=== PATIENT | male | born 1965 | race Caucasian/White ===

== ENCOUNTER 2020-06-14 12:10 | Emergency (ER) | payer SELFPAY ==
--- NOTE | 2020-06-14 12:21 | PDOC ---
History of Present Illness - General Chief Complaint: Pain Stated Complaint: LEFT UPPER ARM PAIN Time Seen by Provider: 06/14/20 12:20 History Source: Patient Exam Limitations: No Limitations - History of Present Illness Initial Comments: 06/14/20 12:21 54YOM with out PMH who p/w left upper arm pain (states in the deltoid region) for the past 3.5 weeks which he noticed after awakening from a normal night's sleep 3.5 weeks ago. States he has taken occasional OTC analgesic for it but no other medications, tried ice and rest and stretching but nothing has helped. He notes it seems to be getting worse and it is exacerbated by movement of the shoulder. Denies any neck, back, chest, rib, or abdominal pain. Denies skin changes. States he thought the area might be swollen and was concerned for a blood clot because a family member mentioned that might be the cause. He denies n/t/w focally. Past History - Medical History Allergies/Adverse Reactions: Allergies Allergy/AdvReac Type Severity Reaction Status Date / Time No Known Allergies Allergy Verified 06/14/20 12:22 Home Medications: Ambulatory Orders NK [No Known Home Medication] 06/14/20 Review of Systems - Review of Systems Able to Perform ROS?: Yes Comments:: 06/14/20 12:32 GEN: no fever, chills, malaise, or generalized weakness HEENT: no ear pain, congestion, sore throat, vision change, or eye pain CV: no chest pain, palpitations, lightheadedness, syncope, or edema RESP: no SOB, wheezing, or cough GI: no abdominal pain, nausea, vomiting, diarrhea, constipation, or rectal bleed : no dysuria, hematuria, or discharge MSK: left upper arm pain, otherwise no muscle weakness or pain, no joint swelling or pain NEURO: no headache, vertigo, numbness, tingling, or focal weakness PSYCH: no SI, HI, or behavior change SKIN: no jaundice, rash, lesions, or unexplained bruises ROS otherwise negative except as noted in HPI *Physical Exam - Vital Signs Initial Vital Signs Temp Pulse Resp BP Pulse Ox 97.7 F 86 15 142/100 96 06/14/20 12:17 06/14/20 12:17 06/14/20 12:17 06/14/20 12:17 06/14/20 12:17 - Physical Exam 06/14/20 12:35 GENERAL: well-appearing, A/Ox4, no distress, answers questions appropriately, pleasant HEENT: PERRLA, EOMI, moist mucous membranes NECK/BACK: no midline ttp, no spinal step-off or deformity, no hematoma, no paraspinous ttp, full ROM, neck supple CARDIOVASCULAR: regular rate/rhythm, no MGR, strong peripheral pulses, capillary refill <2 seconds, extremities wwp, no edema LUNGS/RESPIRATORY: no respiratory distress, CTAB GI/ABDOMEN: symmetric [id number], normoactive BS, soft, no ttp, no midline pulsatile masses : no CVA tenderness MSK/EXTREMITIES: patient hesitant with left shoulder ROM especially with abduction above 90 degrees, minimal left deltoid ttp without swelling, no deformity, no joint line tenderness to left glenohumeral joint, no muscle atrophy, no acute deformity SKIN: warm and dry, no pallor, no jaundice, no rash, no pathologic-appearing bruising, no skin breakdown, no cuts, no lesions NEUROLOGICAL: GCS 15, CN II-XII grossly intact, 5/5 strength proximally and distally, no facial droop Medical Decision Making - Medical Decision Making 06/14/20 12:37 54YOM without PMH p/w focal deltoid pain without known injury, no similar prior episodes. Initial Vital Signs Temp Pulse Resp BP Pulse Ox 97.7 F 86 15 142/100 96 06/14/20 12:17 06/14/20 12:17 06/14/20 12:17 06/14/20 12:17 06/14/20 12:17 Most likely muscle strain/sprain. Possibility of bone cyst/mass and will get XR to evaluate for this. Unlikely DVT as there is no visible swelling and the patient reports no risk factors except decreased activity level since November of 2019. Less likely neurologic injury given that there is no weakness or numbness. No clinical e/o infection. Unlikely any focal myositis or rhabdomyolysis but can get CPK. Provider Orders Category Date Time Status CK INDEX Stat Lab 06/14/20 13:43 Completed CK MB Stat Lab 06/14/20 13:43 Completed CK [CPK] Stat Lab 06/14/20 13:43 Completed HUMERUS-LEFT [RAD] Stat Radiology 06/14/20 12:28 Completed DUPLEX VASCUL US-1 ARM [US] Stat Ultrasound 06/14/20 12:28 Completed Lab Results Creatine Kinase 193 U/L ([id number]) 06/14/20 13:43 Creatine Kinase Index 1.3 % (0.0-5.0) 06/14/20 13:43 CK-MB (CK-2) 2.7 ng/mL (0.5-3.6) 06/14/20 13:43 US/DUPLEX VASCUL US-1 ARM Rule out DVT Left upper extremity ultrasound. Grayscale, pulsed Doppler and color Doppler interrogation of the left upper extremity deep venous system including the subclavian and jugular vein was performed. The left jugular vein, subclavian vein, axillary and brachial vein as well as the left radius and ulnar vein were identified with a normal phasic waveform , adequate compressibility and without evidence of venous thrombosis. Left cephalic and basilic vein are patent without evidence of thrombosis IMPRESSION: There is no evidence of deep venous thrombosis in the left upper extremity including the jugular and subclavian vein. RAD/HUMERUS-LEFT Left humerus: Pain. 2 views of the left humerus reveal no sign of fracture or subluxation and no sign of blastic or lytic changes. If symptoms persist, further imaging may be of help I explain the results to the patient and have a discussion with him about them. He understands we do not know for sure what may be causing his symptoms, but we have ruled out the emergencies we believed it could be. He understands he will need to f/u with his PCP and orthopedist, and will see his PCP on Wednesday. States he lives in [place] and is too far away to come back and see our ortho team here, so will talk with his PCP for a referral if he still has pain on Wednesday. Specific return precautions are discussed. Discharge - Discharge Information Problems reviewed: Yes Clinical Impression/Diagnosis: Left arm pain Condition: Good Disposition: HOME - Admission No - Follow up/Referral Referrals: ON STAFF,NOT [Non Staff, Medical] - - Patient Discharge Instructions Additional Instructions: You were seen in the ER for left deltoid-area arm pain. We did an ultrasound to make sure there was no blood clot (there was none) and an x-ray to make sure there were no bony abnormalities. We also took a lab sample for measurement of creatine phophokinase to make sure there was no muscle breakdown (it was normal). We do not know exactly what is causing the pain, but we do not think you are having an emergency anymore at this time. Please use rest, ice, compression and elevation. You can take Tylenol and Motrin for pain as needed. Follow up with your primary doctor and discuss a referral to an orthopedist with them (we offered you a referral to one of ours, but you live far away). If you have any new or worsening symptoms, go immediately to an ER. - Post Discharge Activity
[2020-06-14 12:31] VITALS: BP 142/100; PULSE 86; TEMP 97.7; BMI 31.7
== END 2020-06-14 14:42 | disposition home or self-care (01) ==
LOC: FER 12:10
DX: M79.602 Pain in left arm (principal)
CPT/HCPCS: 36415; 73060-TC-LT-FY; 82550; 82553; 93971; 99284-25